=== PATIENT | female | born 1945 | race Hispanic/Latino ===

== ENCOUNTER → 2021-07-04 | Outpatient (CLI) | payer OTHER | END | disposition home or self-care (01) | LOC: RAH 10:01 | PROVIDERS: ATTEND Internal Medicine Cardiovascular Disease | DX: Z13.6 Encounter for screening for cardiovascular disorders (principal) | CPT/HCPCS: 75571 ==

== ENCOUNTER 2022-12-22 06:39 | Day surgery (SDC) | payer OTHER ==
[2022-12-20 10:00] LABS: BASOPHILS % (AUTO) 0.5 % (0.0-5.0); EOSINOPHILS % (AUTO) 1.2 % (0.0-8.0); HEMATOCRIT 43.5 % (36-48); LYMPHOCYTES % (AUTO) 25.5 % (21.0-51.0); MEAN CORPUSCULAR HEMOGLOBIN 30.1 pg (27.0-33.0); MEAN CORPUSCULAR HGB CONC 32.6 g/dL (32.0-36.0); MEAN CORPUSCULAR VOLUME 92.2 fL (79-99); MONOCYTES % (AUTO) 7.7 % (3.0-13.0); NEUTROPHILS % (AUTO) 64.6 % (40.0-77.0); PLATELET COUNT (AUTO) 166 K/uL (130-400); RED BLOOD CELL COUNT(AUTO) 4.72 MIL/uL (4.00-5.50); RED CELL DISTRIBUTION WIDTH 13.5 % (11.0-15.5); WHITE BLOOD COUNT (AUTO) 4.2 K/uL (4.8-10.8)
[2022-12-20 10:06] VITALS: BP 120/66
[2022-12-20 10:08] LABS: CREATININE 0.7 mg/dL (0.5-1.5); POTASSIUM 4.1 mmol/L (3.5-5.1)
[2022-12-20 10:09] LABS: APPEARANCE,URINE CLEAR (CLEAR); BILIRUBIN,URINE NEGATIVE (NEGATIVE); COLOR,URINE COLORLESS (YELLOW); GLUCOSE, URINE (UA) NEGATIVE (NEGATIVE); KETONES,URINE NEGATIVE (NEGATIVE); LEUKOCYTE ESTERASE ,URINE NEGATIVE Leu/uL (NEGATIVE); NITRATE,URINE NEGATIVE (NEGATIVE); PROTEIN,URINE NEGATIVE (NEGATIVE); UROBILINOGEN,URINE 0.2 mg/dL (0.2-1.0)
[2022-12-20 10:14] LABS: PROTHROMBIN TIME 10.9 SEC (9.6-11.6)
[2022-12-20 10:16] LABS: PARTIAL THROMBOPLASTIN TIME 29.9 SEC (26.3-35.5)
[2022-12-20 10:33] LABS: BACTERIA,URINE RARE /HPF (None Seen); RBC,URINE 0-1 /HPF (0-1); SQUAMOUS EPITHELIAL CELL,UR MOD /HPF (0-2); WBC,URINE 0-1 /HPF (0-1)
[2022-12-20 10:39] LABS: B-TYPE NATRIURETIC PEPTIDE 77 pg/mL (0-100)
[~2022-12-22] VITALS: Ht 165.1 cm; Wt 84.1 kg
[2022-12-22] VITALS (11 sets, daily range): BP systolic 104–154; BP diastolic 57–80
[~2022-12-22 06:39] MED LIST: ALEN70TA80 PO; APIX5TAB PO; BUSP10TA3 PO; CHOL2000 PO; LEVO88CA4 PO; METO-391 PO; MVIT PO; calcium 600 PO; estradiol VG; zinc PO
[2022-12-22] MEDS ORDERED: 0.9%NACL 1000ML 1,000 ML IV ONE (07:21)
[2022-12-22] MEDS ORDERED: FENTANYL CITRATE PF 50 MCG/1 ML 2ML VIAL ONE (11:50)
[2022-12-22] MEDS ORDERED: MIDAZOLAM HCL 1 MG/ML 2ML VIAL ONE (11:50)
[2022-12-22] MEDS ORDERED: IOHEXOL-350 75 ML VIAL IV ONE (11:50)
[2022-12-22] MEDS ORDERED: HEPARIN 10,000 UNIT/10ML (1,000 UNIT/ML) VIAL ONE (11:51)
[2022-12-22] MEDS ORDERED: NICARDIPINE 25MG INJ IV ONE ×2 (11:51→12:00)
[2022-12-22] MEDS ORDERED: NITROGLYCERIN 50MG VIAL ONE (11:51)
[2022-12-22] MEDS ORDERED: SODIUM BICARB 50MEQ 50ML VIAL 50 ML ONE (11:53)
[2022-12-22] MEDS ORDERED: LIDOCAINE HCL 400MG/20ML VIAL ONE (11:53)
[2022-12-22] MEDS ORDERED: IOHEXOL-350 50ML VIAL IV ONE (12:31)
[2022-12-22] MEDS ORDERED: NITROGLYCERIN 4.1 GM SPRAY TL ONE (12:35)
[2022-12-22] MEDS ORDERED: 0.9% NACL 500ML IV.SOLN 500 ML IV SCH (13:00)
[2022-12-22] MEDS ORDERED: ACETAMINOPHEN 500 MG TABLET ONE (13:38)
[2022-12-22] MEDS ORDERED: ACETAMINOPHEN 500 MG TABLET PO ONE (14:00)
== END 2022-12-22 19:30 | disposition home or self-care (01) ==
LOC: DAH 06:39
PROVIDERS: ATTEND Internal Medicine Cardiovascular Disease
DX: I25.119 Atherosclerotic heart disease of native coronary artery with unspecified angina pectoris (principal); I48.0 Paroxysmal atrial fibrillation; I10 Essential (primary) hypertension; E78.5 Hyperlipidemia, unspecified; K44.9 Diaphragmatic hernia without obstruction or gangrene; G47.33 Obstructive sleep apnea (adult) (pediatric); Z90.710 Acquired absence of both cervix and uterus; Z98.890 Other specified postprocedural states; Z90.49 Acquired absence of other specified parts of digestive tract; E89.0 Postprocedural hypothyroidism; Z98.49 Cataract extraction status, unspecified eye; Z82.49 Family history of ischemic heart disease and other diseases of the circulatory system; Z88.8 Allergy status to other drugs, medicaments and biological substances; Z79.01 Long term (current) use of anticoagulants; Z79.899 Other long term (current) drug therapy
CPT/HCPCS: 80048; 83880; 85025; 85610; 85730; 81001; 36415; 71045; 93005; 93458; C1769 ×2; C1894; A4649 ×2; J3010; J3490 ×5; J7030; J1644 ×2; J2250; Q9967 ×2; 99156; 99157

== ENCOUNTER → 2023-06-05 | Outpatient (CLI) | payer OTHER | END | disposition home or self-care (01) | LOC: RAH 09:24 | PROVIDERS: ATTEND Surgery | DX: K44.9 Diaphragmatic hernia without obstruction or gangrene (principal) | CPT/HCPCS: 74240 ==

== ENCOUNTER 2025-01-02 11:15 | Emergency (ER) | payer OTHER ==
[~2025-01-02] VITALS: Ht 165.1 cm; Wt 81.6 kg
[~2025-01-02 11:15] MED LIST changes: -LEVO88CA4 PO; +LEVO88CA5 PO
[2025-01-02] MEDS: TRIAMCINOLONE ACETONIDE 40 MG/ML 1ML VIAL IM ONE (12:46)
[2025-01-02] MEDS: ORPHENADRINE 60MG/2ML IM ONE (12:46)
--- NOTE | 2025-01-02 13:47 | HMCIMG ---
CT PELVIS W/O CONTRAST CT RECONSTRUCTIONS HISTORY: Left hip pain. COMPARISON: None TECHNIQUE: Multiple sequential axial images of the left hip/pelvis were obtained from the iliac crests through symphysis pubis. Patient was not given contrast through intravenous route. Oral contrast was not given. 3-D volume renderings included. FINDINGS/IMPRESSION: Several diverticula along the distal colon, and uterus is absent, otherwise, no evidence for any acute intrapelvic abnormality. No evidence for fracture, joint effusion, or dislocation.
[2025-01-02] MEDS ORDERED: CYCL10TA16 PO (14:13)
[2025-01-02] MEDS ORDERED: LIDO1ADH82 TP (14:13)
--- NOTE | 2025-01-02 14:13 | ERN ---
ED Note History of Present Illness Stated Complaint: SEVERE PELVIC AND BACK PAIN Chief Complaint: Back Pain or Injury Time Seen by MD: 11:16 Time Seen by Midlevel: 11:16 Dictation: The patient is a 79-year-old female with a history of AFib, hypertension, arthritis who presents to the emergency department with complaints of left hip pain onset two months ago. Patient reports that she was injured will who is seen in an abnormal way while in bed. Patient reports that he has been seen in another emergency room with a had done CT scans and showed no acute pathology and was ordered to follow up with PCP which she did. Patient has a scheduled MRI on February 06. patient reports she has been working with pain management but I because she is pending MRI she has not been able to follow up. Denies any recent injury. Patient reports some diarrhea but no incontinence. Allergies: Coded Allergies: [id number] Reductase Inhibitor (Unverified Allergy, Unknown, 12/21/22) levofloxacin (Unverified Allergy, Unknown, SWELLING, 12/20/22) Home Meds Active Scripts Lidocaine (Lidocaine) 4 % Adh..patch, 1 PATCH TP DAILY for 10 Days, #10 PATCH 0 Refills Prov:NORA PRETTY [facility] 01/02/25 Cyclobenzaprine HCl (Flexeril) 10 Mg Tab, 10 MG PO TID for muscle sstiffness, #14 TAB 0 Refills Prov:NORA PRETTY [facility] 01/02/25 Reported Medications Cholecalciferol (Vitamin D3) (Vitamin D3) 50 Mcg Capsule, 50 MCG PO AM, CAP 12/21/22 [calcium 600] No Conflict Check, 600 MG PO HS 12/21/22 [zinc] No Conflict Check, 1 TAB PO HS 12/21/22 Multivitamins,Therapeutic (Multivitamin Tablet) 1 Tab Tab, 1 TAB PO AM, TAB 12/21/22 Buspirone HCl (Buspirone HCl) 10 Mg Tablet, 5 MG PO TID PRN for anxiety, TAB 12/21/22 Alendronate Sodium (Alendronate Sodium) 70 Mg Tablet, 70 MG PO weekly, TAB 12/21/22 [estradiol] No Conflict Check, 1 APPL VG 3xweekly 12/21/22 Levothyroxine Sodium (Levothyroxine) 88 Mcg Capsule, 88 MCG PO AM, CAP 12/21/22 Metoprolol Succinate (Metoprolol Succinate) 50 Mg Tab.er.24h, 25 MG PO AM, TAB 12/21/22 Apixaban (Eliquis) 5 Mg Tablet, 5 MG PO BID, TAB RESUME ELIQUIS ON 12/23/22 12/21/22 Past Medical History Past Medical History: No Pertinent History Surgical History: Other RN Note Reviewed/Agreed w/PFSH: Yes Review of System Dictation Constitutional: Negative for fever,chills, and weight loss Eyes: Negative for injury, pain,redness, and discharge ENT: Negative for injury,pain or swelling Cardiovascular: Negative for chest pain, palpitations, and edema Respiratory: Negative for shortness of breath, cough, and wheezing, Abdomen/GI: Negative for abdominal pain, nausea, vomiting, diarrhea, and constipation Back: Negative for injury and pain : Negative for injury, bleeding and discharge MS/Extremity: Negative for injury and deformity positive for left hip Skin: Negative for rash, and discoloration Neuro: Negative for headache, weakness, numbness, tingling, and seizure Psych: Negative for suicide ideation, homicidal ideation, and hallucinations Initial Vital Sign VS Vital Signs Date Time Temp Pulse Resp B/P (MAP) Pulse Ox O2 Delivery O2 Flow Rate FiO2 01/02/25 11:30 98.1 77 20 134/82 98 Room Air 0 Physical Exam Dictation Vital Signs reviewed General Appearance: Alert, oriented x 3, no acute distress, well developed, no urished. Head and Face: non-traumatic. Eyes: PERRL, pink conjunctivas, eyelid no trauma, anterior chamber with arcus senilis. Ears: Pinnas intact and no signs of trauma or erythema ear canals clear and no discharge TM no erythema Nose: No discharge, no bleeding. Oropharynx: Mouth normal, tongue pink. pharynx clear,no erythema, tonsils no exudates, no abscesses noted, mucous me mbrane moist Neck: Supple, non-tender, no thyromegaly, no masses, no JVD, no bruits Breast:Deferred Chest:No tenderness, no crepitus, no paradoxical movement, no retractions Lungs:Clear, well-ventilated, symmetric, no rales, no wheezing, no rhonchi, no stridor, good breath sounds bilaterally Heart: Regular rate, regular rhythm, no murmur, no gallops Vascular: no peripheral edema, posterior tibialis 2+ bilaterally Abdomen: Soft, positive bowel sounds, nondistended, no guarding, nontender, no rebound, no masses no hepatomegaly, no splenomegaly, no Hernandez's sign, no hernias. Rectal: Deferred Genital: Deferred Neurological: Normal speech, motor function intact, sensory function intact Musculoskeletal: Neck nontender, full range of motion, back nontender, full range of motion Extremities: nontender, full range of motion , left hip tenderness, no Skin: Color pink, dry, no turgor, no rash, no lacerations, no abrasions, no contusions. Lymphatic: Deferred Results (Laboratory/Radiology) Laboratory/Radiology REASON: left hip pain ORDERING PHYSICIAN: NORA PRETTY PROCEDURE: PELVIS WO - CT PELVIS W/O CONTRAST CT PELVIS W/O CONTRAST CT RECONSTRUCTIONS HISTORY: Left hip pain. COMPARISON: None TECHNIQUE: Multiple sequential axial images of the left hip/pelvis were obtained from the iliac crests through symphysis pubis. Patient was not given contrast through intravenous route. Oral contrast was not given. 3-D volume renderings included. FINDINGS/IMPRESSION: Several diverticula along the distal colon, and uterus is absent, otherwise, no evidence for any acute intrapelvic abnormality. No evidence for fracture, joint effusion, or dislocation. Labs Reviewed?: Yes ED Course ED Course Orders Procedure Category Date Status Time Ct Pelvis W/O Contrast CT 01/02/25 Resulted 11:59 Orphenadrine Citrate PHA 01/02/25 Complete (Norflex) 12:00 Triamcinolone Acet PHA 01/02/25 Complete 40mg/Ml 1ml (Kenalog 12:00 Ketorolac PHA 01/02/25 In Process Tromethamine 30mg/Ml 14:30 Current Medications Medications (Trade) Dose Ordered Sig/Kaden Route PRN Reason Start Time Stop Time Status Last Admin Dose Admin Ketorolac Tromethamine (toRADol) 30 mg ONCE ONCE IM 01/02/25 14:30 01/02/25 14:31 Orphenadrine Citrate (Norflex) 60 mg ONCE ONCE IM 01/02/25 12:00 01/02/25 12:06 DC 01/02/25 12:46 Triamcinolone Acetonide (Kenalog 40) 40 mg ONCE ONCE IM 01/02/25 12:00 01/02/25 12:06 DC 01/02/25 12:46 Vital Signs Date Time Temp Pulse Resp B/P (MAP) Pulse Ox O2 Delivery O2 Flow Rate FiO2 01/02/25 11:30 98.1 77 20 134/82 98 Room Air 0 Medical Decision Making MDM The patient is a 79-year-old female with a history of AFib, hypertension, arthritis who presents to the emergency department with complaints of left hip pain onset two months ago. Patient reports that she was injured will who is seen in an abnormal way while in bed. Patient reports that he has been seen in another emergency room with a had done CT scans and showed no acute pathology and was ordered to follow up with PCP which she did. Patient has a scheduled MRI on February 06. patient reports she has been working with pain management but I because she is pending MRI she has not been able to follow up. Denies any recent injury. Patient reports some diarrhea but no incontinence. CT showed no acute fractures. Patient reports improving in pain. Patient neurovascularly intact. Full range of motion to lower extremity. Patient notes will be discharged to follow up with PCP. Patient has rested who follow up with her MRI. Differential diagnosis: Pelvis fracture, fracture, sciatic nerve pain Need for hospitalization: Patient does not meet criteria for hospitalization. There are no social concerns with this patient. DX & DISP Disposition: Discharge Departure Impression: Primary Impression: Left hip pain Condition: Stable Scripts Lidocaine (Lidocaine) 4 % Adh..patch 1 PATCH TP DAILY for 10 Days, #10 PATCH 0 Refills Prov: NORA PRETTY [employer] 01/02/25 Cyclobenzaprine HCl (Flexeril) 10 Mg Tab 10 MG PO TID for muscle sstiffness, #14 TAB 0 Refills Prov: NORA PRETTY 01/02/25 Additional Instructions: Please follow up with your primary doctor in 1-2 days. Continue to follow up for your appointment for your MRI. If symptoms worsen please return to ER FOLLOW-UP WITH PRIMARY CARE PROVIDER IN 1 TO 2 DAYS. TAKE MEDICATIONS DIRECTED HERE IN THE EMERGENCY ROOM. OKAY TO CONTINUE HOME MEDICATIONS UNLESS OTHERWISE DISCUSSED DURING YOUR VISIT IN THE EMERGENCY ROOM TODAY. RETURN TO YOUR NEAREST EMERGENCY ROOM IF SYMPTOMS WORSEN OR IF THERE IS NO IMPROVEMENT. CALL 911 IF YOU NEED IMMEDIATE ASSISTANCE. TAKE TYLENOL OR MOTRIN [id number] NEEDED AND IF NO CONTRAINDICATIONS ARE PRESENT. INCREASE ORAL HYDRATION. A WOUND CULTURE OR URINE CULTURE WAS ORDERED HERE IN THE EMERGENCY ROOM DEPARTMENT PLEASE FOLLOW-UP WITH PRIMARY CARE PROVIDER AND ADVISE THEM TO GET REPEAT PORTS FROM OUR FACILITY. IF YOU HAD ANY BAILEY WRAP/SPLINTS THAT WERE APPLIED HERE, PLEASE DO NOT REMOVE THEM UNTIL YOU SEE YOUR PRIMARY CARE OR SPECIALTY. Referrals: JE AQUINO (PCP) Time of Disposition: 14:11 I have reviewed the case, and I agree with, Diagnosis and Plan NORA PRETTY [employer] Jan 02, 2025 14:13
[2025-01-02 14:19] VITALS: BP 127/79; PULSE 72; RESP 18; TEMP 98.2; O2SAT 98
[2025-01-02] MEDS: ketOROlac 30MG VIAL (30MG/ML) IM ONE (14:28)
== END 2025-01-02 14:29 | disposition home or self-care (01) ==
LOC: EDH 11:15
DX: M25.552 Pain in left hip (principal); I10 Essential (primary) hypertension; Z79.01 Long term (current) use of anticoagulants; Z79.899 Other long term (current) drug therapy; Z88.1 Allergy status to other antibiotic agents; Z88.8 Allergy status to other drugs, medicaments and biological substances; Z98.890 Other specified postprocedural states; X58.XXXA Exposure to other specified factors, initial encounter; Y93.89 Activity, other specified; Y92.89 Other specified places as the place of occurrence of the external cause; Y99.8 Other external cause status
CPT/HCPCS: 99285; 72192; 96372 ×3; J1885; J3301; J2360

== ENCOUNTER → 2025-06-01 | Outpatient (CLI) | payer OTHER ==
[~2025-06-01] MED LIST changes: +CYCL10TA16 PO; +LIDO1ADH82 TP
--- NOTE | 2025-06-01 10:52 | HMCIMG ---
DOUBLE CONTRAST UPPER GI SERIES: CLINICAL HISTORY: Nausea/GERD without esophagitis diaphragmatic hernia without obstruction. Finding: The study was performed using provocative maneuvers After swallowing effervescent crystal and thick barium, there is no definite intrinsic or extrinsic lesion seen in the esophagus. There is tertiary contraction of the esophagus suggesting of dysmotility. There is grade 1 esophageal reflux. 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 The stomach is normal in size, shape, and configuration. The rugal folds appear to be normal. The duodenal bulb, duodenal sweep, and upper jejunum appear to be normal. There is a small diverticulum seen in the third portion of the duodenum. Fluoroscopy time: 1 minutes IMPRESSION: Tertiary contraction of the esophagus Grade 1 esophageal reflux with moderate-sized paraesophageal hernia Patient notes trouble swallowing would recommend a modified swallow with speech pathologist.
== END | disposition home or self-care (01) ==
LOC: RAH 08:31
PROVIDERS: ATTEND Internal Medicine Gastroenterology
DX: K21.00 Gastro-esophageal reflux disease with esophagitis, without bleeding (principal); K21.9 Gastro-esophageal reflux disease without esophagitis; R11.0 Nausea; K44.9 Diaphragmatic hernia without obstruction or gangrene; R13.10 Dysphagia, unspecified
CPT/HCPCS: 74240